=== PATIENT | male | born 1980 | race Caucasian/White ===

== ENCOUNTER 2018-07-01 11:11 | Emergency (ER) | payer MEDICAID, OTHER ==
[~2018-07-01] VITALS: Ht 170.2 cm; Wt 66.0 kg
[~2018-07-01 11:11] MED LIST: AMLO10TA4 PO; B50; DIGO125T82 PO; LORA10CA
[2018-07-01] MEDS ORDERED: IBUPROFEN 600MG TABLET PO ONE (12:45)
[2018-07-01 14:01] VITALS: BP 113/75
== END 2018-07-01 14:04 | disposition home or self-care (01) ==
LOC: ER 11:11
DX: S09.8XXA Other specified injuries of head, initial encounter (principal); R51 Headache; M54.2 Cervicalgia; M54.6 Pain in thoracic spine; V43.52XA Car driver injured in collision with other type car in traffic accident, initial encounter; Y93.9 Activity, unspecified; Y92.411 Interstate highway as the place of occurrence of the external cause
CPT/HCPCS: 99284